=== PATIENT | male | born 1970 | race African-American/Black ===

== ENCOUNTER 2021-08-02 22:58 | Inpatient (IN) ==
[~2021-08-02 22:58] MED LIST: LIDOCAINE 1% 20 ML VIAL ONE; MIDAZOLAM 2 MG/2 ML VIAL ONE; fentaNYL 100 MCG/2 ML VIAL ONE
[2021-08-02] MEDS ORDERED: LIDOCAINE 1% 20 ML VIAL ONE (23:39)
[2021-08-02] MEDS ORDERED: HEPARIN 5,000 UNIT/1 ML VIAL ONE (23:48)
[2021-08-02] MEDS ORDERED: TIROFIBAN 5,000 MCG/100 ML PREMIX IV ONE (23:50)
[2021-08-02 23:53] LABS: Basophils % 0.4 % (0.0-0.8); Eosinophils # 0.1 10*3/uL (0.0-0.87); Hematocrit 44.2 VOL% (42.0-52.0); Hemoglobin 14.4 GM/DL (14.0-18.0); Immature Granulocytes % 0.3 %; Immature Granulocytes Absolute 0.02 #; Lymphocytes # 1.3 10*3/uL (1.4-4.0); Mean Corpuscular HGB Conc 32.6 GM/DL (32-36); Mean Corpuscular Volume 84.4 FL (87-102); Mean Platelet Volume 10.8 FL (9.6-12.0); Monocytes % 8.1 % (1.7-12.7); Neutrophils % 73.2 % (38.7-73.9); Platelet Count 209 T/CUMM (130-400); Red Blood Count 5.24 MC/CUMM (3.8-5.5); Red Cell Distribution Width 13.3 % (9.3-17.3); White Blood Count 7.7 T/CUMM (4-12)
[2021-08-03 00:16] LABS: Calcium 8.9 MG/DL (8.5-10.1); Osmolality,Calculated 276.7 MOS/KG (273-304); Potassium 3.9 MMOL/L (3.5-5.1)
[2021-08-03 00:19] LABS: Risk Ratio 6.06; VLDL Cholesterol 15.2 MG/DL
[2021-08-03] MEDS: TIROFIBAN 5,000 MCG/100 ML PREMIX IV SCH ×5 (00:30→23:49)
[2021-08-03] MEDS ORDERED: POTASSIUM BICARB EFFERVESCENT 20 MEQ TAB.EFF PER TUBE PRN (00:59)
[2021-08-03] MEDS ORDERED: MAGNESIUM SULF RIDER 4 GM/100 ML PREMIX IV PRN (00:59)
[2021-08-03] MEDS ORDERED: MORPHINE 2 MG/1 ML SYRINGE IV PRN (00:59)
[2021-08-03] MEDS ORDERED: MAGNESIUM SULF RIDER 2 GM/50 ML PREMIX IV PRN (00:59)
[2021-08-03] MEDS ORDERED: ACETAMINOPHEN 325 MG TABLET PO PRN (00:59)
[2021-08-03] MEDS ORDERED: ONDANSETRON 4 MG/2 ML VIAL IV PRN (00:59)
[2021-08-03] MEDS ORDERED: POTASSIUM CHLORIDE RIDER 10 MEQ/100 ML PREMIX IV PRN (00:59)
[2021-08-03] MEDS ORDERED: NITROGLYCERIN SL 0.4 MG TABLET SL PRN (00:59)
[2021-08-03] MEDS ORDERED: SODIUM CHLORIDE 0.9% 1,000 ML IV SCH ×2 (01:03→06:00)
[2021-08-03] MEDS ORDERED: carvediloL 6.25 MG TABLET PO SCH ×2 (01:10→09:00)
[2021-08-03] MEDS ORDERED: MAGNESIUM SULF RIDER 2 GM/50 ML PREMIX IV ONE (01:15)
[2021-08-03] MEDS: PANTOPRAZOLE 40 MG TABLET PO SCH ×2 (01:36→08:45)
[2021-08-03] MEDS: ROSUVASTATIN 20 MG TABLET PO SCH ×2 (01:36→21:35)
[2021-08-03 01:47] LABS: Basophils % 0.4 % (0.0-0.8); Eosinophils # 0.1 10*3/uL (0.0-0.87); Hematocrit 43.9 VOL% (42.0-52.0); Hemoglobin 14.2 GM/DL (14.0-18.0); Immature Granulocytes % 0.3 %; Immature Granulocytes Absolute 0.02 #; Lymphocytes # 1.4 10*3/uL (1.4-4.0); Lymphocytes % 18.6 % (21.2-54.2); Mean Corpuscular HGB Conc 32.3 GM/DL (32-36); Mean Corpuscular Volume 84.1 FL (87-102); Mean Platelet Volume 10.6 FL (9.6-12.0); Monocytes % 7.1 % (1.7-12.7); Neutrophils % 72.6 % (38.7-73.9); Platelet Count 220 T/CUMM (130-400); Red Blood Count 5.22 MC/CUMM (3.8-5.5); Red Cell Distribution Width 13.4 % (9.3-17.3); White Blood Count 7.7 T/CUMM (4-12)
[2021-08-03 02:16] LABS: Albumin 3.4 G/DL (3.4-5.0); Bilirubin,Total 0.5 MG/DL (0.20-1.00); Potassium 4.1 MMOL/L (3.5-5.1); Thyroid Stimulating Hormone 1.55 uIU/ml (0.358-3.74); Total Protein 7.6 G/DL (6.4-8.2)
[2021-08-03] MEDS: carvediloL 12.5 MG TABLET PO SCH ×4 (08:45→21:35)
[2021-08-03] MEDS: ASPIRIN EC 81 MG TABLET PO SCH (08:45)
[2021-08-03] MEDS: MAGNESIUM CHLORIDE 64 MG TABLET PO SCH ×2 (08:45→21:35)
[2021-08-03] MEDS: TICAGRELOR 90 MG TABLET PO SCH ×2 (08:45→21:34)
[2021-08-03] MEDS ORDERED: ASPIRIN CHEW 81 MG TABLET PO SCH (09:00)
[2021-08-03] MEDS: CETIRIZINE 10 MG TABLET PO SCH (10:35)
[2021-08-04] MEDS: TIROFIBAN 5,000 MCG/100 ML PREMIX IV SCH (04:38)
[2021-08-04 05:30] LABS: Basophils % 0.6 % (0.0-0.8); Eosinophils # 0.3 10*3/uL (0.0-0.87); Eosinophils % 4.8 % (0.00-10.9); Hematocrit 42.6 VOL% (42.0-52.0); Immature Granulocytes % 0.4 %; Immature Granulocytes Absolute 0.02 #; Lymphocytes # 1.5 10*3/uL (1.4-4.0); Lymphocytes % 28.8 % (21.2-54.2); Mean Corpuscular HGB Conc 32.9 GM/DL (32-36); Mean Corpuscular Volume 84.9 FL (87-102); Mean Platelet Volume 10.8 FL (9.6-12.0); Monocytes % 10.8 % (1.7-12.7); Neutrophils % 54.6 % (38.7-73.9); Platelet Count 189 T/CUMM (130-400); Red Blood Count 5.02 MC/CUMM (3.8-5.5); Red Cell Distribution Width 13.6 % (9.3-17.3); White Blood Count 5.2 T/CUMM (4-12)
[2021-08-04 05:42] LABS: Calcium 8.4 MG/DL (8.5-10.1); Osmolality,Calculated 276.5 MOS/KG (273-304)
[2021-08-04] MEDS: MAGNESIUM CHLORIDE 64 MG TABLET PO SCH (08:57)
[2021-08-04] MEDS: TICAGRELOR 90 MG TABLET PO SCH (08:57)
[2021-08-04] MEDS: CETIRIZINE 10 MG TABLET PO SCH (08:57)
[2021-08-04] MEDS: ASPIRIN EC 81 MG TABLET PO SCH (08:57)
[2021-08-04] MEDS: PANTOPRAZOLE 40 MG TABLET PO SCH (08:57)
[2021-08-04] MEDS ORDERED: carvediloL 25 MG TABLET PO SCH (09:00)
[2021-08-04] MEDS ORDERED: MAGNESIUM OXIDE 400 MG TABLET PO SCH (09:00)
== END 2021-08-04 10:57 | disposition home or self-care (01) | DRG 247 ==
LOC: N.CL 22:58 → N.ICU 23:53
PROVIDERS: ADMIT Internal Medicine Cardiovascular Disease; ATTEND Internal Medicine Cardiovascular Disease
PROC: CLCCHCL (ICD-10-PCS; 2021-08-02 23:30)